=== PATIENT | female | born 1995 | race Caucasian/White ===

== ENCOUNTER 2025-05-13 22:53 | Emergency (ER) | payer BC ==
[~2025-05-13] VITALS: Ht 165.1 cm; Wt 95.3 kg
[2025-05-13] MEDS ORDERED: LIDOCAINE HCL/MPF 1% 30 ML VIAL IJ ONE (23:19)
[2025-05-13] MEDS ORDERED: SULF1TAB48 PO (23:26)
[2025-05-13] MEDS ORDERED: TDAP [DIPH/PERTUSSIS/TET] 0.5 ML VIAL IM ONE (23:42)
[2025-05-13 23:49] VITALS: BP 141/83; TEMP 98.6; O2SAT 100
[2025-05-13] MEDS: TDAP [DIPH/PERTUSSIS/TET] 0.5 ML VIAL IM ONE (23:51)
[2025-05-13] MEDS ORDERED: SULFAMETH/TRIMETH 800/160 MG 1 UDTAB TABLET ONE (23:52)
[2025-05-14] MEDS: SULFAMETH/TRIMETH 800/160 MG 1 UDTAB TABLET PO ONE (00:02)
== END 2025-05-13 23:49 | disposition home or self-care (01) ==
LOC: ER 23:16
DX: S01.511A Laceration without foreign body of lip, initial encounter (principal); Z86.018 Personal history of other benign neoplasm; Z88.0 Allergy status to penicillin; Z88.1 Allergy status to other antibiotic agents; Z88.6 Allergy status to analgesic agent; W54.0XXA Bitten by dog, initial encounter; Y93.89 Activity, other specified; Y92.89 Other specified places as the place of occurrence of the external cause; Y99.8 Other external cause status
CPT/HCPCS: 12011; 90471; 90715; 99283; J3490